=== PATIENT | male | born 1995 | race Caucasian/White ===

== ENCOUNTER 2017-01-07 15:23 | Emergency (ER) | payer BC ==
[~2017-01-07] VITALS: Wt 90.0 kg
[2017-01-07] MEDS ORDERED: HYDR-906 PO (17:16)
[2017-01-07] MEDS ORDERED: AMOX1TAB10 PO (17:16)
[2017-01-07] MEDS ORDERED: NAPR-688 PO (17:16)
[2017-01-07] MEDS ORDERED: HYDROCODONE/APAP (5/325) TAB PO ONE (17:30)
[2017-01-07] MEDS ORDERED: IBUPROFEN 600 MG TAB PO ONE (17:30)
--- NOTE | 2017-01-07 17:32 | ERD ---
ER Documentation Chief Complaint Date/Time DATE: 01/07/17 TIME: 17:28 Chief Complaint non traumatic frontal headache with fever. no neuro deficit HPI This 21-year-old male presents for a mild to moderate frontal headache is been going on for 3 days with no trauma. Patient did not realize he had any fever until he was here. He has no neck pain no back pain is not dizzy and has no neuro deficits. He has no current sick contacts and has been going to work normally and performing his normal activities of daily living. He does not feel extra tired. ROS All systems reviewed and are negative except as per history of present illness. Medications Home Meds Active Scripts Hydrocodone/Acetaminophen ([place]wn 5-325 Tablet) 1 Each Tablet, 1 EACH PO Q6, #20 TAB Prov:NADIYA CR DO 01/07/17 Amoxicillin/Potassium Clav (Amox-Clav 875-125 mg Tablet) 875-125 mg Tab, 1 TAB PO BID, #20 TAB Prov:NADIYA CR DO 01/07/17 Naproxen* (Naproxen*) 500 Mg Tablet, 500 MG PO BID, #20 TAB Prov:NADIYA CR DO 01/07/17 Physical Exam Vitals Vital Signs Date Time Temp Pulse Resp B/P Pulse Ox O2 Delivery O2 Flow Rate FiO2 01/07/17 15:44 101.2 110 20 134/74 99 Physical Exam Const: [] No distress Head: Atraumatic Eyes: Normal Conjunctiva, EOMI, PRL ENT: Normal External Ears, Nose and Mouth. Neck: Full range of motion..~ No meningismus. Resp: Clear to auscultation bilaterally Cardio: Regular mild tachycardia, no murmurs Skin: No petechiae or rashes Ext: No cyanosis, or edema Neur: Awake and alert and oriented 3, cranial nerves II through XII intact, no cerebellar deficits, normal gait Results 24 hrs Current Medications Medications (Trade) Dose Ordered Sig/Trevon Route PRN Reason Start Time Stop Time Status Last Admin Dose Admin Acetaminophen/ Hydrocodone Bitart ([place]wn (5/325)) 1 tab ONCE ONCE PO 01/07/17 17:30 01/07/17 17:31 Ibuprofen (Motrin) 600 mg ONCE ONCE PO 01/07/17 17:30 01/07/17 17:31 Procedures/MDM Likely viral syndrome causing acute headache and fever. The obvious concern would be for meningitis. The patient is actually smiling, energetic, has absolutely no symptoms except for his frontal headache. No neck pain or meningismus, no back pain. Very well-appearing. Patient also does not want any laboratories drawn or any IV started. He is hoping to just get some medication for the headache. To prevent any progression of a bacterial infection that could have any neurological consequences I do on discharge with Augmentin. I also gave him a dose of 600 mg ibuprofen in the emergency room as well as a Woodlawn tab. I am discharging with naproxen [place] and Augmentin. I have explained to him the risks of meningitis and with symptoms to look for and given him strict return precautions to the ER if he develops any concerning change. Discharge and primary care follow-up in the next 2 days. Departure Diagnosis: Primary Impression: Fever Additional Impressions: Acute viral syndrome Headache Condition: Stable Patient Instructions: Self-Care for Headaches Referrals: [facility] YOU HAVE RECEIVED A MEDICAL SCREENING EXAM AND THE RESULTS INDICATE THAT YOU DO NOT HAVE A CONDITION THAT REQUIRES URGENT TREATMENT IN THE EMERGENCY DEPARTMENT. FURTHER EVALUATION AND TREATMENT OF YOUR CONDITION CAN WAIT UNTIL YOU ARE SEEN IN YOUR DOCTORS OFFICE WITHIN THE NEXT 1-2 DAYS. IT IS YOUR RESPONSIBILITY TO MAKE AN APPOINTMENT FOR FOLOW-UP CARE. IF YOU HAVE A PRIMARY DOCTOR --you should call your primary doctor and schedule an appointment IF YOU DO NOT HAVE A PRIMARY DOCTOR YOU CAN CALL OUR PHYSICIAN REFERRAL HOTLINE AT IF YOU CAN NOT AFFORD TO SEE A PHYSICIAN YOU CAN CHOSE FROM THE FOLLOWING [facility] [address] [facility] [address] [facility]. [facility] [address] [facility] [address] [facility] [address] [facility]. [facility] [address] [facility]. [facility]. [address] Additional Instructions: Call your primary care doctor TOMORROW for an appointment during the next 1-2 days. Return to ER for any altered mental status, neck or back pain, or any other concerning change. See the doctor sooner or return here if your condition worsens before your appointment time. NADIYA CR DO Jan 07, 2017 17:32
== END 2017-01-07 17:58 | disposition home or self-care (01) ==
LOC: FTE 15:23
DX: R50.9 Fever, unspecified (principal); B34.9 Viral infection, unspecified
CPT/HCPCS: 99284; Z7610